=== PATIENT | female | born 1960 | race Caucasian/White ===

== ENCOUNTER → 2019-02-26 | Day surgery (SDC) | payer BC ==
[2019-02-25 13:21] LABS: BASOPHILS # (AUTO) 0.1 X10'3 (0-0.2); BASOPHILS % (AUTO) 0.9 % (0-1); EOSINOPHILS # (AUTO) 0.2 X10'3 (0-0.9); EOSINOPHILS % (AUTO) 3.7 % (0-6); LYMPHOCYTES # (AUTO) 2.3 X10'3 (1.1-4.8); LYMPHOCYTES % (AUTO) 37.6 % (21-51); MEAN CORPUSCULAR HEMOGLOBIN 32.4 PG (27.0-31.0); MEAN CORPUSCULAR VOLUME 95.2 FL (78-98); MEAN PLATELET VOLUME 8.7 FL (7.4-10.4); MONOCYTES # (AUTO) 0.4 X10'3 (0-0.9); MONOCYTES % (AUTO) 6.7 % (2-12); NEUTROPHILS # (AUTO) 3.1 X10'3 (1.8-7.7); NEUTROPHILS % (AUTO) 51.1 % (42-75); PRE OP HEMATOCRIT 30.2 % (35.0-45.0); PRE OP PLATELET COUNT 284 X10'3 (140-440); RED BLOOD COUNT 3.18 X10'6 (4.20-5.60); RED CELL DISTRIBUTION WIDTH 13.1 % (11.5-14.5)
[2019-02-25 13:23] LABS: PRE OP HEMOGLOBIN 10.3 g/dL (12.0-16.0)
[2019-02-25 13:38] LABS: ALBUMIN 3.8 G/DL (3.4-5.0); ALBUMIN/GLOBULIN RATIO 1.3 (1.1-1.5); ALKALINE PHOSPHATASE 104 IU/L (46-116); BLOOD UREA NITROGEN 24 MG/DL (7-18); BUN/CREATININE RATIO 16.2 (6.6-38.0); CALCIUM 8.9 MG/DL (8.5-10.1); CHLORIDE 108 MMOL/L (99-107); CREATININE 1.48 MG/DL (0.40-0.90); PRE OP ANION GAP 3 (8-16); PRE OP AST 14 U/L (10-37); PRE OP BILIRUB, TOTAL 0.2 MG/DL (0.0-1.0); PRE OP GLUCOSE 103 MG/DL (70-104); PRE OP POTASSIUM 4.2 MMOL/L (3.4-5.1); PRE OP SODIUM 143 MMOL/L (135-145); TOTAL CARBON DIOXIDE 32.4 MMOL/L (24-32); TOTAL PROTEIN 6.7 G/DL (6.4-8.2); eGFR 36 ML/MIN
[2019-02-25 13:43] LABS: PRE OP ALT 23 U/L (30-65)
[~2019-02-26] VITALS: Ht 160 cm; Wt 63.5 kg
[~2019-02-26] MED LIST: FLAX100031 PO; LIDOcaine 1% (10mg/ml) 2ml vial ONE; MULT-1085 PO; SERT50TA10 PO; cefazolin/dext.iso 2gm/100ml 100 ML IV ONE; famotidine 20mg tablet PO ONE; ringers solution, lacted 1,000 ML IV SCH
--- NOTE | 2019-02-26 06:46 | NUR ---
DR REILLY IN TO SEE PT. SURGERY CANCELED BY DR HEBERT. IV D/C'D PT DRESSED AND AMBULATED TO CAR WITH FAMILY, DR SILVER TO [facility] PT TO RESCHEDULE
[2019-02-26 06:55] LABS: PARTIAL THROMBOPLASTIN TIME 26 SECONDS (22-32)
== END | disposition home or self-care (01) ==
LOC: PAS 05:23
PROVIDERS: ATTEND Urology
DX: N13.1 Hydronephrosis with ureteral stricture, not elsewhere classified (principal); Z53.8 Procedure and treatment not carried out for other reasons; Z79.01 Long term (current) use of anticoagulants
CPT/HCPCS: 36415; 71046; 80053; 85025; 85610; 85730; 86885; 86900; 86901; J2001; J7120